=== PATIENT | male | born 1935 | race Caucasian/White ===

== ENCOUNTER 2017-05-17 13:47 | Inpatient (IN) | payer MEDICAID ==
[~2017-05-17] VITALS: Ht 175.3 cm; Wt 88.6 kg
[~2017-05-17 13:47] MED LIST: APAP/HYDROCODON1 T13 PO; COL100 PO; COLACE100 MG PO; FLO4 PO; GAS RELIEF80 MG PO; KEFLEX500 MG PO; LAC PO; MYL80 CH; NOR10T PO; OSCD PO; PRI20 PO; PROS5 PO; REG5 PO; XARELTO15 M1 PO; ZES10 PO
--- NOTE | 2017-05-17 14:47 | NUR ---
DR DILLARD AT BEDSIDE FOR MSE
--- NOTE | 2017-05-17 15:50 | NUR ---
ZOSSYN INFUSION COMPLETED. VANCOMYCIN INFUSION STARTED PER MD ORDERS SEE EMAR. WILL MONITOR. PT IN NO DISTRESS
[2017-05-17 15:53] LABS: BASOPHIL % 0.5 % (0-2); PLATELET COUNT 161 x10^3mcL (130-400)
[2017-05-17 15:58] LABS: CALCIUM 9.1 mg/dL (8.5-10.1); CARBON DIOXIDE 34.5 mmol/L (21-32); CHLORIDE SERUM 103 mmol/L (98-107); CREATININE SERUM 0.9 mg/dL (0.7-1.3); GLUCOSE SERUM 102 mg/dL (74-106); POTASSIUM SERUM 4.6 mmol/L (3.5-5.1); SODIUM SERUM 139 mmol/L (136-145)
[2017-05-17 16:03] LABS: ALBUMIN 3.4 g/dL (3.4-5.0); ALKALINE PHOSPHATASE 70 U/L (46-116); ALT/SGPT 17 U/L (16-63); AST/SGOT 14 U/L (15-37); BILIRUBIN TOTAL 0.4 mg/dL (0.20-1.00); TOTAL PROTEIN, SERUM 7.2 g/dL (6.4-8.2)
[2017-05-17 16:13] LABS: RED CELL DISTRIBUTION WIDTH 14.9 % (11.5-14.5)
[2017-05-17] MEDS ORDERED: ADV200 (16:46)
[2017-05-17] MEDS ORDERED: XARELTO10 M1 (16:46)
[2017-05-17] MEDS ORDERED: LOSARTAN POTASS25 M1 (16:46)
--- NOTE | 2017-05-17 16:53 | NUR ---
REPORT GIVEN TO HILARIA EDMONDSON, MARCO EDMONDSON WILL BE PRIMARY NURSE RESUMING CARE OF PT IN TELE FLOOR
[2017-05-17 17:13] LABS: ERYTHROCYTE SED RATE 18 mm/hr (0-20)
--- NOTE | 2017-05-17 17:16 | NUR ---
REC'D PT FROM ER VIA [facility]. PT IS AAOX3, FORGETFUL. 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 TELE #31 SR. RESP EVEN AND UNLABORED. NO SOB NOTED. OPEN ULCER NOTED TO RLE. WOUND CULTURE OBTAINED AND PICTURE TAKEN. DISCOLORATION NOTED TO RLE. IV NOTED TO RAC. INTACT AND PATENT. ORIENTED PT TO CALL LIGHT. BED IN LOWEST POSITION. WILL ENDORSE TO PRIMARY RN.
--- NOTE | 2017-05-17 17:17 | NUR ---
PT TRANSPORTED TO TELE FLOOR VIA GURNEY ON PORTABLE CM NO DISTRESS. FAMILY WILL ACCOMPANY PT. MARCO EDMONDSON WILL RESUME CARE OF PT
[2017-05-17 17:27] VITALS: BP 149/78
[2017-05-17 17:28] LABS: T3 TOTAL 0.89 ng/mL
[2017-05-17 17:29] LABS: FREE T4 0.78 ng/dL (0.76-1.46); FREE THYROXINE INDEX 2.1 ug/dL (1.4-4.5); T4(THYROXINE) 6.3 ug/dL (4.7-13.3)
[2017-05-17 17:50] LABS: MAGNESIUM 2.1 mg/dL (1.8-2.4); PHOSPHOROUS 3.3 mg/dL (2.5-4.9)
--- NOTE | 2017-05-17 19:00 | NUR ---
AT 1815 - COMMENCED IV INFUSION OF NS AT 100 ML/HR. PATIENT AMBULATED TO BATHROOM AND BACK TO BED. RLE ULCERS COVERED WITH NON-ADHERANT DRESSING AND GAUZE BANDAGE. SON AT BEDSIDE. AT 1850 - DR GARDINER AT BEDSIDE EXAMINING PATIENT. WILL ENDORSE CARE TO NIGHT NURSE.
--- NOTE | 2017-05-17 20:00 | NUR ---
AWAKE AND RESPONISVE. ABLE TO MAKE NEEDS KNOWN IN FRISIAN ONLY. RIGHT LOWER EXTREMTIY WITH ULCER/DISCOLORATION. SEEN BY PICTURES EDITOR, DR MATA, WITH ORDER TO GET CONSENT FOR FOR RIGHT LOWER EXTREMITY DEBRIDEMENT OF THE ULCER, PT SIGNED AFTER EXPLAINING BY DR MATA THE RISKS/BENEFITS OF SUCH PROCEDURE. WILL CONTINUE TO MONITOR.
[2017-05-17 20:42] VITALS: BP 111/64
--- NOTE | 2017-05-18 00:01 | NUR ---
CONTINUES ON ATB IVPB FOR MANAGEMENT OF INFECTED OF RIGHT LEG ULCER. NO ADVERSE REACTION NOTED. ASSISTED IN REPOSITIONING, WILL CONTINUE TO MONITOR.
[2017-05-18 05:20] VITALS: BP 136/65
[2017-05-18 06:10] LABS: microscopic required? NO
[2017-05-18 06:21] LABS: UA SPECIFIC GRAVITY 1.015 (1.005-1.035); urine erythrocyte NEGATIVE (NEGATIVE)
--- NOTE | 2017-05-18 06:44 | NUR ---
URINE SPECIMEN CLOOECTED FOR UA AND SENT TO LAB. KEPT CLEAN AND RY. ALL NEEDS ATTENDED.
--- NOTE | 2017-05-18 07:20 | NUR ---
RECEIVED PATIENT FROM NIGHT NURSE. AWAKE, ALERT AND APPEARS ORIENTED. MONITOR SHOWING SINUS RHYTHM. DRESSING TO RLE DRY AND INTACT. NO C/O PAIN AT THIS TIME. IV INFUSING NS AT 100ML/HR. USING URINAL FOR VOIDIN.
--- NOTE | 2017-05-18 08:00 | NUR ---
DR MATA AT BEDSIDE DOING DEBRIDEMENT OF RLE ULCER UNDER LOCAL ANAESTHESIA. WOUND PHOTO DOCUMENTED POST DEBRIDEMENT.
--- NOTE | 2017-05-18 08:50 | NUR ---
SEEN BY DR VALERIO DURING MORNING ROUNDS. MEDICAL TEAM DOCTORS, ALEX VIVAR AND MYSELF PRIMARY NURSE ALSO PRESENT. SPOKE WITH PATIENT AND SON WHO IS AT BEDSIDE. CONTINUE WITH CURRENT TREATMENT OF ANTIBIOTICS.
[2017-05-18 10:11] VITALS: BP 146/74
--- NOTE | 2017-05-18 12:00 | NUR ---
ULTRASOUND AT BEDSIDE. PAIN APPEARS UNDER CONTROL AFTER RECEIVING NORCO PER EMAR.
[2017-05-18 13:34] VITALS: BP 131/56
[2017-05-18 16:21] VITALS: BP 121/59
--- NOTE | 2017-05-18 18:36 | NUR ---
QUIET AFTERNOON. VSS AND WNL. AFEBRILE. IV REMAINS AT 100ML/HR. VOIDING IN URINAL. EATING A CCHO DIET WITH GOOD APPETITE. DRESSING TO RLE REMAINS DRY AND INTACT. PAIN UDER CONTROL. WILL ENDORSE CARE TO NIGHT NURSE.
--- NOTE | 2017-05-18 20:00 | NUR ---
AWAKE AND VERBALLY RESPONSIVE. SKIN WARM AND DRY TO TOUCH. RESPIRATION EVEN AND UNLABORED. DRESSING DRY AND INTACT TO RLE S/P EXCISSIONAL DEBRIDEMENT OF THE RIGHT ANKLE ULCERATION. NO ACTIVE BLEEDING NOTED. PLACED CALL LIGHT WITHIN REACH. WILL CONTINUE TO MONITOR.
[2017-05-18 21:04] VITALS: BP 100/57
--- NOTE | 2017-05-19 00:01 | NUR ---
CONTINUES ON ATB IVPB FOR MANAGEMENT OF RIGHT ANKLE ULCERATION WITHOUT ADVERSE REACTION NOTED. USES URINAL FOR BLADDER ELIMINATION. KEPT CLEAN AND DRY.
[2017-05-19 05:20] VITALS: BP 130/56
[2017-05-19 05:38] VITALS: BP 113/80
--- NOTE | 2017-05-19 06:17 | NUR ---
CONTINUES ON ATB IVPB WITHOUT ADVERSE REACTION NOTED. KEPT CLEAN AND DRY. ALL NEEDS ATTENDED.
[2017-05-19 07:12] LABS: BASOPHIL % 0.5 % (0-2); PLATELET COUNT 167 x10^3mcL (130-400); RED CELL DISTRIBUTION WIDTH 14.5 % (11.5-14.5)
[2017-05-19 07:15] LABS: CALCIUM 8.9 mg/dL (8.5-10.1); CHLORIDE SERUM 104 mmol/L (98-107); GLUCOSE SERUM 108 mg/dL (74-106); POTASSIUM SERUM 3.8 mmol/L (3.5-5.1); SODIUM SERUM 138 mmol/L (136-145)
--- NOTE | 2017-05-19 07:39 | NUR ---
RECEIVED PATIENT FROM NIGHT NURSE. AWAKE, ALERT, APPEARS ORIENTED. NO C/O PAIN. MONITOR SHOWING SINUS RHYTHM; RATE 60'S. IV INFUSING NS AT 100ML/HR. RLE DRESSING DRY AND INTACT.
--- NOTE | 2017-05-19 09:38 | NUR ---
SEEN BY DR VALERIO DURING MORNING ROUNDS. MEDICAL TEAM DOCTORS, ALEX VIVAR AND MYSELF PRIMARY NURSE ALSO PRESENT. DR VALERIO SPOKE WITH PATIENT IN [place]. CONTINUE WITH CURRENT TREATMENT.
[2017-05-19 09:52] VITALS: BP 135/66
--- NOTE | 2017-05-19 12:30 | NUR ---
FAMILY VISITING. BLOOD GLUCOSE IN NORMAL RANGE. EATING WELL.
[2017-05-19 13:56] VITALS: BP 163/76
[2017-05-19 17:17] VITALS: BP 112/60
--- NOTE | 2017-05-19 19:04 | NUR ---
BICILLIN L-A 2.4 ADMINSITERED IM IN R AND L BUTTOCK PER EMAR. PATIENT REMAINS UNCHANGED. VSS. IV AT 100ML/HR. ETING WELL. AMBULATING IN ROOM. WILL ENDORSE CARE TO NIGHT NURSE.
--- NOTE | 2017-05-19 19:43 | NUR ---
AWAKE AND VERBALLY RESPONISVE, ABLE TO MAKE NEEDS KNOWN IN CUB[place] ONLY. FAMILY AT BEDSIDE VERY SUPPORTIVE OF PATIENT'S PLAN OF CARE. SKIN WARM AND DRY TO TOUCH WITH RIGHT ANLE ULCERATION S/P DEBRIDEMENT ON05/18/17, DRESSING DRY AND INTACT. BOTH HEELS/ELBOWS OFF LOADED WITH PILLOWS FOR SUPPORT. PAIN LEVEL 2/10, TOLERABLE AT THIS TIME. INSTRUCTED TO USE CALL LIGHT IN ASSSITANCE NEEDED.
[2017-05-19 21:35] VITALS: BP 106/52
--- NOTE | 2017-05-20 | NUR ---
CONTINUES ON ATB IVPB FOR MANAGEMENT OF RLE ULCER, NO ADVERSE REACTION NOTED. UNALE TO GET WOUND PHOTOGRAPH AT THE [facility], PT BADLY REFUSED, REQUESTED TO BE TAKEN IN AM WHEN DRESSING WILL BE CHANGED IT IS SCHEDULED TO BE CHANGED TODAY SATURDAY. WILL ENDORSE TO INCOMING SHIFT TO FOLLOW UP.
[2017-05-20 05:17] VITALS: BP 107/46
[2017-05-20 06:52] LABS: PLATELET COUNT 158 x10^3mcL (130-400); RED CELL DISTRIBUTION WIDTH 13.2 % (11.5-14.5)
[2017-05-20 06:58] LABS: BASOPHIL % 2.3 % (0-2)
--- NOTE | 2017-05-20 07:00 | NUR ---
I HAVE REVIEWED THE DATA COLLECTION BY [facility] (NAME):FRANCI HERNANDEZ ENTERED ON (DATE/TIME):05/20/17 AT 0700AM I CONCUR WITH THE DATA AND ANY EXCEPTIONS OR COMMENTS ARE LISTED BELOW:
--- NOTE | 2017-05-20 07:30 | NUR ---
RECEIVED PATIENT IN BED, AWAKE ALERT AND ORIENTED. AMHARIC SPEAKING. DEIES ANY PAIN OR DISCOMFORT. IVF INFUSING WELL. TELE [address] MATA WAS INTO SEE PATIENT AND CHANGED PAITENT'S DRESSING ON RIGHT LEG. BROWNISH DISCOLORATIION NOTED ON RIGHT LEG ABOVE DRESSING. PATIENT ABLE TO WIGGLE TOES. TRACE EDEMA NOTED BLE. AMBULATES AD EUGENE TO THE BATHROOM PRN. GENERALIZED WEAKNESS NOTED. NO ACUTE DISTRESS NOTED. PATIENT INSTRUCTED TO USE CALL LIGHT FOR ASSIST.
--- NOTE | 2017-05-20 08:00 | NUR ---
DR PACHECO AND MEDICAL TEAM INTO SEE PATIENT AND DISCUSS PLAN OF CARE.
[2017-05-20 09:48] VITALS: BP 153/84
[2017-05-20] MEDS ORDERED: LAC PO (10:42)
[2017-05-20] MEDS ORDERED: ADV200 PO (10:43)
[2017-05-20] MEDS ORDERED: NOR10T PO (10:44)
[2017-05-20] MEDS ORDERED: LOSARTAN POTASS25 M1 PO (10:45)
[2017-05-20] MEDS ORDERED: TRAMADOL HCL50 MG PO (10:48)
[2017-05-20] MEDS ORDERED: LEVAQUIN750 MG PO (10:56)
[2017-05-20 11:24] VITALS: BP 153/84
[2017-05-20] MEDS ORDERED: LIPI20 PO (11:25)
[2017-05-20 12:29] VITALS: BP 120/61
[2017-05-20] MEDS ORDERED: COL100 PO (16:24)
--- NOTE | 2017-05-20 16:59 | NUR ---
PATIENT READY FOR D/C HOME. HL AND TELE DC'D. SON KITTY AT BEDSIDE AND INSTRUCTED ON WOUND CARE/DRESSING CHANGES ORDERED BY . PRESCRIPTION AND DISCHARGE INSTTRUCTIONS GIVEN. PERSONAL BELONGINGS LIST SIGNED. MEDICATION EDUCATION PROVIDED. CONDITON APPEARS STABLE.
== END 2017-05-20 17:00 | disposition home health service (06) | DRG 380 ==
LOC: ED 13:47 → DU 16:32
PROVIDERS: Emergency Medicine; Student in an Organized Health Care Education/Training Program; ADMIT Family Medicine
PROC: 0JBQ0ZZ Excision of Right Foot Subcutaneous Tissue and Fascia, Open Approach (ICD-10-PCS; principal; 2017-05-18)
DX: L97.318 Non-pressure chronic ulcer of right ankle with other specified severity (principal); N17.0 Acute kidney failure with tubular necrosis; L03.115 Cellulitis of right lower limb; E78.5 Hyperlipidemia, unspecified; N13.9 Obstructive and reflux uropathy, unspecified; I10 Essential (primary) hypertension; Z68.28 Body mass index [BMI] 28.0-28.9, adult
CPT/HCPCS: 82962; 83880; 84439; 90658; J0561; J2001; J2543; J3370; J7030; J8597; Q0092